=== PATIENT | male | born 1975 | race Caucasian/White ===

== ENCOUNTER → 2019-10-02 17:06 | Outpatient (CLI) | payer BC, SELFPAY ==
[2019-10-02 18:18] LABS: Free T4 (Free Thyroxine) 0.84 ng/dl (0.78-2.19)
== END ==
PROVIDERS: Visit Provider Family Medicine
DX: R79.89 Other specified abnormal findings of blood chemistry (principal)
CPT/HCPCS: 36415; 84439

== ENCOUNTER 2024-01-13 07:58 | Day surgery (SDC) | payer BC, SELFPAY ==
--- NOTE | 2024-01-10 10:11 | SUR.PREOP ---
attempted to call patient. no answer. left voicemail with call back number
[2024-01-10 11:32] VITALS: BMI 29.3
[2024-01-13 08:08] VITALS: BP 134/91; PULSE 58; RESP 18; TEMP 36.4; O2SAT 98
--- NOTE | 2024-01-13 08:22 | P.PNANES_ITS ---
[facility] Disclaimer: The information contained in this section may have been updated after the patient was seen, as this information can be updated by other users. Medical History Hyperthyroidism Hypertension Surgical History S/P foot surgery, left Family History Father Prostate cancer Mother Family history of myocardial infarction Family history of COPD (chronic obstructive pulmonary disease) Grandmother Family history of diabetes mellitus type II Social History Smoking Status: Former smoker alcohol intake: never substance use type: denies use current occupational status: employed Travel in the last 8 weeks: None caffeine: Yes [facility] Anesthesia Checklist Patient Identification Patient Identification: Arm Band and Verbal (Name & ) Structural Data Admitted From: Home Planned Operative Procedure/s: Colonoscopy Consent for Planned Operative Procedure(s) Verified: Yes Verified Documents: Surgical Consent and History and Physical NPO Status Verified Time NPO: 00:00 Additional verifications Anesthesia Reactions: No Airway Assessment Mallampati Score:: Class I C-Spine Mobility Assessed: Yes TMJ Mobility Assessed: Yes Dentition: Good Dentition Neurological Assessment Level of Consciousness: Awake Hx Seizures: No Numbness or tingling in extremities: No Anesthesia Plan Anesthesia Risk discussed: Yes Anesthesia Plan: Verified ASA Class: II Anesthesia Type: MAC
[2024-01-13] MEDS: LACTATED RINGERS 1000ML 1,000 ML 25 ML IV (08:28)
[2024-01-13 09:06] VITALS: O2SAT 100
--- NOTE | 2024-01-13 09:10 | P.HP_ITS ---
History of Present Illness *Admission Date: 01/13/24 *Reason for visit:: Screening *History of present illness: Mr. Loaiza is a 48-year-old gentleman who is here for screening colonoscopy/screening for colon cancer. The examination is deemed medically necessary for colonoscopy. The patient has been seen, interviewed and examined prior to the procedure by both myself and the anesthesia provider. [facility] Disclaimer: The information contained in this section may have been updated after the patient was seen, as this information can be updated by other users. Medical History Hyperthyroidism Hypertension Surgical History S/P foot surgery, left Family History Father Prostate cancer Mother Family history of myocardial infarction Family history of COPD (chronic obstructive pulmonary disease) Grandmother Family history of diabetes mellitus type II Social History (Updated 01/13/24 @ 08:27 by Alonso Glynn CRNA) Smoking Status: Former smoker alcohol intake: never substance use type: denies use current occupational status: employed Travel in the last 8 weeks: None caffeine: Yes Review of Systems Review of Systems Review of systems (narrative): Negative *Cardiovascular Comments: Negative *Gastrointestinal Comments: Negative *Genitourinary Comments: Negative *Musculoskeletal Comments: Negative *Neurologic Comments: Negative Meds Home Medications and Allergies Home Medications ?Medication ?Instructions ?Recorded ?Confirmed ?Type [id number] 140 gram-sod sulfate 9 See Rx Instructions PO .COMPLEX #3 01/06/24 Rx gram-NaCl 5.2gram-KCl-C oral pwdr ea packs (Plenvu) escitalopram oxalate 10 mg tablet 10 mg PO DAILY 01/13/24 01/13/24 History lisinopril 10 mg tablet 10 mg PO DAILY 01/13/24 01/13/24 History loratadine 10 mg tablet 10 mg PO DAILY 01/13/24 01/13/24 History New Prescriptions to Start Prescriptions: Allergies Allergy/AdvReac Type Severity Reaction Status Date / Time No Known Allergies Allergy Verified 01/13/24 08:08 Exam Data for Last 24 hours Vital signs and Labs for Last 24 Hours: Temp Pulse Resp BP Pulse Ox O2 Del Method O2 Flow Rate 97.6 F 58 L 18 134/91 H 98 Nasal Cannula 5 01/13/24 08:08 01/13/24 08:08 01/13/24 08:08 01/13/24 08:08 01/13/24 08:08 01/13/24 09:06 01/13/24 09:06 I & O for Last 24 hours: Intake & Output 01/10/24 01/11/24 01/12/24 01/13/24 23:59 23:59 23:59 23:59 Weight 182 lb *Routine HEENT Exam Head: Present normocephalic Eye: Present EOMI and PERRL ENT: Present mucous membranes moist *Routine Neck Exam Neck: Present supple *Routine Respiratory Exam Respiratory: Present CTA bilaterally *Routine Cardiovascular Exam Cardiovascular: Present RRR *Routine Abdominal Exam Abdominal: Present soft and normoactive bowel sounds; Absent tenderness *Routine Rectal Exam Rectal:: deferred *Routine Genitalia Exam Genitalia:: deferred *Routine Extremities Exam Extremities: Absent cyanosis, clubbing or edema *Routine Skin Exam Skin: Present warm; Absent rash *Routine Neurological Exam Neurological: Present alert and oriented X3 Assessment and Plan *Assessment and plan (1) Screening for colon cancer: Status: Acute Category: Medical Code(s): Z12.11 - Encounter for screening for malignant neoplasm of colon Plan A/P: 1. Screening for colon cancer is the preprocedural diagnosis. The patient will be anesthetized/sedated using MAC sedation. The patient has been seen and examined. Cardiac and lung assessment prior to the examination is stable. Proceed with planned colonoscopy
--- NOTE | 2024-01-13 09:11 | HMH.PROCNOTE ---
[facility] Procedure Note Date: 01/13/24 Time: 09:28 Procedure Note:: Colonoscopy Procedure Report: Colonoscopy with cold snare polypectomy Endoscopist: Arthur Simmons II, MD Referring physician: Jose Scott MD Date of Procedure: January 13, 2024 Equipment: Olympus 190 variable stiffness pediatric colonoscope Sedation: MAC sedation Indication: Mr. Loaiza is a 48-year-old gentleman who is here for initial screening colonoscopy. He reports no abdominal pain, weight loss, change in his bowel habits or rectal bleeding. He reports no family history of colon cancer. Procedure: Prior to the procedure, a history and physical exam was performed, and patient's medications and allergies were reviewed. The risks, benefits and alternatives of the sedation and procedure were discussed with the patient. All questions were answered and informed consent was obtained. The patient was brought to the procedure room. Patient identification and proposed procedure were verified by the physician and the nurse. The patient was placed in a left lateral decubitus position and the scope was passed under direct vision. Throughout the procedure, the patient's blood pressure, pulse, and oxygen saturations were monitored continuously. The colonoscopy was accomplished without difficulty. The patient tolerated the procedure well. Findings: On digital rectal examination there was normal rectal tone. There were no external hemorrhoids. The prostate was 2+, moderately firm and mildly asymmetric without nodules. The colonoscope was introduced through the anal canal to the rectum and advanced to the cecum. The ileocecal valve and appendiceal orifice were identified. The scope was advanced a short distance into the ileum which appeared grossly normal. The scope was then withdrawn into the colon. There was melanosis coli noted throughout the colon. The cecum, ascending, transverse and ascending colon were normal. There were 3 diminutive polyps (sigmoid x 1 (5 mm) and rectum x 2 (3 and 4 mm)). These were all removed via cold snare polypectomy. The remaining rectum was normal. Upon retroflexion within the rectum there were grade 1-2 internal hemorrhoids.The preparation was excellent throughout with [place] Preparation Score of 9. The cecal time was 11 minutes. Impression: 1. Diminutive colonic polyps x 3 2. Moderate melanosis coli 3. Grade 1-2 internal hemorrhoids Plan: I will follow-up the polyp histology and recommend repeat surveillance colonoscopy again in 7 to 10 years depending whether these are adenomatous or hyperplastic polyps. 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 Melanosis coli is a disorder of pigmentation of the wall of the colon. It is benign and has no correlation with disease. Melanosis coli is a misnomer since the brown pigmentation is actually caused by a substance call lipofuscin deposited in cells called macrophages. It is not a melanin deposit. It is most commonly caused by a group of laxatives commonly known to us as anthroquinolones such as senna and other plant/natural laxatives. No adverse effects or consequences of melanosis coli have ever been identified. I would encourage psyllium fiber rather than stimulant laxatives.
[2024-01-13 09:33] VITALS: BP 88/43; PULSE 68; RESP 16; TEMP 36.3; O2SAT 94
[2024-01-13 09:43] VITALS: BP 98/52; PULSE 67; RESP 16; O2SAT 96
[2024-01-13 09:53] VITALS: BP 101/54; PULSE 66; RESP 16; O2SAT 98
[2024-01-13 09:54] VITALS: BP 109/65; PULSE 59; RESP 16; O2SAT 98
== END 2024-01-13 10:15 | disposition home or self-care (01) ==
PROVIDERS: PCP Family Medicine; Visit Provider Internal Medicine Gastroenterology
PROC: (CPT 45385; principal; 2024-01-13 09:30)
DX: Z12.11 Encounter for screening for malignant neoplasm of colon (principal); K63.5 Polyp of colon; K63.89 Other specified diseases of intestine; K64.8 Other hemorrhoids
CPT/HCPCS: 45385; J7120

== ENCOUNTER 2024-01-16 11:00 | Outpatient (CLI) | payer BC, SELFPAY ==
[2024-01-16 17:40] LABS: Iron 82 ug/dL (49-181)
[2024-01-16 17:49] LABS: Total Iron Binding Capacity 280 ug/dL (261-462)
[2024-01-16 18:16] LABS: Ferritin 319 ng/ml (17.9-464)
[2024-01-16 19:16] LABS: HIV (1&2) Antibody Rapid NONREACTIVE (NONREACTIVE)
[2024-01-17 07:13] LABS: HCV Ab Non Reactive (Non Reactive)
== END 2024-01-16 23:59 | disposition home or self-care (01) ==
LOC: LAB.DROPOF 01-17 12:46
PROVIDERS: PCP Nurse Practitioner Family; Visit Provider Nurse Practitioner Family
DX: R53.83 Other fatigue (principal); Z11.4 Encounter for screening for human immunodeficiency virus [HIV]; Z11.59 Encounter for screening for other viral diseases
CPT/HCPCS: 82728; 83540; 83550; 86803; 87389

== ENCOUNTER 2024-02-07 13:59 | Outpatient (CLI) | payer BC, SELFPAY ==
--- NOTE | 2024-02-07 14:00 | CT_ITS ---
FINAL REPORT TECHNIQUE: Thin section axial images were obtained from the lung apices to the upper abdomen by computed tomography. Reformatted images were obtained and reviewed. This study was performed with techniques to keep radiation doses al low as reasonably achievable (ALARA). Individualized dose reduction techniques using automated exposure control or adjustment of mA and/or kV according to the patient's size were employed. CLINICAL HISTORY: former smoker, quit 8 years ago. total of 34 years. 1ppd COMPARISON: None FINDINGS: CHEST CT LOW DOSE 48-year-old male, former smoker who quit 8 years ago, 46-[id number]-rqiv history. CTDI vol (mGy): 2.9 DLP (mGy-cm): 100.03 There is no axillary adenopathy. There is no mediastinal or hilar mass or adenopathy. The heart is normal in size. Mild coronary artery calcifications are present. There is no pericardial or pleural effusion. Lung window images demonstrate no suspicious infiltrate or nodule. Limited images of the upper abdomen are unremarkable. IMPRESSION: Lung-RADS category 1. Recommend 12 month follow up low dose chest CT. Reviewed, Interpreted and Dictated by Roby Sanchez III, MD Transcribed by Yuli Stearns Authenticated and . [facility]
== END 2024-02-07 23:59 | disposition home or self-care (01) ==
LOC: RAD 14:00
PROVIDERS: PCP Nurse Practitioner Family; Visit Provider Nurse Practitioner Family
DX: Z87.891 Personal history of nicotine dependence (principal); Z12.2 Encounter for screening for malignant neoplasm of respiratory organs
CPT/HCPCS: 71271

== ENCOUNTER → 2024-03-05 07:41 | Outpatient (CLI) | payer BC, SELFPAY | LOC: SL 07:41 | PROVIDERS: PCP Nurse Practitioner Family; Visit Provider Nurse Practitioner Family | DX: R06.83 Snoring (principal); Z68.29 Body mass index [BMI] 29.0-29.9, adult | CPT/HCPCS: G0399 ==

== ENCOUNTER 2025-01-13 11:00 | Outpatient (CLI) | payer BC, SELFPAY ==
--- OUTSIDE RECORDS SUMMARY | 2023-10-28 05:15 | XMS_ITS ---
Author Organization [facility] Address [address] [facility] 36 [facility] [address] [place] [phone] Care Team Providers Care Card Checker Name Role Phone Renetta Scottian Primary Care Provider Allergies No Known Allergies Results Component Value Reference Range Notes P-Basic Metabolic Panel (BMP ) Reviewed date:10/30/2023 10:15:46 AM Interpretation:Normal Performing Lab: Notes/Report: Test performed by [email or web address] [facility] [employer] [place] , [address], [place] [address] Rolly Patel MD, Microstrategy Architect CLIA: [id number] Sodium 138 135-145 mmol/L Potassium 4.4 3.5-5.3 mmol/L Chloride 102 97-108 mmol/L CO2 30 22-32 mmol/L Glucose 89 65-99 mg/dL BUN 11 6-20 mg/dL Creatinine 0.94 0.70-1.30 mg/dL Calcium 10.2 8.6-10.4 mg/dL eGFR by Creatinine 98 >59 mL/min/1.73m2 P-Lipid Panel Reviewed date:10/30/2023 10:15:46 AM Interpretation:Normal Performing Lab: Notes/Report: [email or web address] [place] , [address], [place] [address] Rolly Patel MD, Microstrategy Architect CLIA: [id number] Cholesterol 156 <200 mg/dL Triglycerides 50 <150 [...] Interpretation:Normal Performing Lab: Notes/Report: Test performed by [email or web address] [address] [place] [address] Rolly Patel MD, Microstrategy Architect CLIA: [id number] PSA 0.43 <4.00 ng/mL Please note this is an ultrasensitive PSA assay with a lower limit of detection of 0.014 ng/mL. This test is performed by the Connor ECLIA methodology. Values obtained with different assay methods or kits cannot be directly compared. P-Microalbumin/Creatinine, R andom Urine Sample Reviewed date:10/30/2023 10:15:46 AM Interpretation:Normal Performing Lab: Notes/Report: Test performed by [email or web address] [address] [place] [address] Rolly Patel MD, Microstrategy Architect CLIA: [id number] Albumin/Creatinine Ratio, Urine See Comment 0-30 ug/mg Unable to calculate Urine Albumin/Creatinine Ratio when urine creatinine or urine albumin fall outside established reportable range. Microalbumin, Urine, Random <0.3 Creatinine, Urine 21.4 P-Uric Acid Reviewed date:10/30/2023 10:15:46 AM Interpretation:Normal Performing Lab: Notes/Report: Test performed by [email or web address] [address] [place] [address] , [address], [place] [address] Rolly Patel MD, Microstrategy Architect CLIA: [id number] Uric Acid 4.2 3.4-8.0 mg/dL REASON FOR [...] 10/28/2023 Encounters Encounter Location Date Provider Diagnosis [facility] [address] [facility] 36 [facility] [address] [place] [phone] 10/28/2023 Jose [place] Essential hypertensi on I10 ; Non-seasonal allergic [...] * Trev MCALLISTERDOB:1975 ( 49 yo M)Acc No.[id number]:10/28/2023 Progress Notes Patient: Trev BUTLER Provider: Tyrone Scott M.D. :1975 A ge:48 Y S ex:Male Date:10/28/2023 Address:[address] [place] [address] , [place], [id number] Subjective: * Chief Complaints: * 1 . [...] detector use: yes. Marital Status: Single. 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 Past smoking status: yes, PPD: 1.5 , [...] ?4.?Colon cancer screening?Imaging: colonoscopy* Dr. Simmons at [facility] 10/28/2023 10:00:34 AM > faxed order [...] * Images: Billing Information: * Visit Code: 72628 Office Visit, Est Pt., Level 4. * Procedure Codes: * Electronic signature of Rebecca Scott MD on 01/15/2025 at 09:02 AM EDT Sign off status: Pending * Provider: Tyrone Scott M.D. Date: 0 10/28/2023 Generated for Yelena pearson/Johnson/eTserge on: 1 09:02 AM EDT History and Physical Notes * HPI (History [...]
--- OUTSIDE RECORDS SUMMARY | 2024-01-01 10:15 | XMS_ITS ---
Author Organization [facility] Address [address] [facility] 36 [facility] [address] [place] [id number] Care Team Providers Care Icu Tech Name Role Phone Jose Scott Primary Care Provider Allergies No Known Allergies [...] 423 Performing Lab: Notes/Report: Test performed by [facility] [address] [place], [place] [address] [place] , [address], [place] [address] Rolly Patel MD, Process Planner CLIA: [id number] Vitamin B12 734 538-8588 pg/mL P-Arthritis Panel, [facility] Reviewed date:01/06/2024 11:48:31 AM Interpretation:Normal Performing Lab: Notes/Report: Test performed by [facility] [address] [place], [place] [address] [place] , [address], [place] [address] Rolly Patel MD, Process Planner CLIA: [id number] Erythrocyte Sedimentation Rate (ESR), Automated 5 <21 mm/hr Rheumatoid Factor <10 <14.1 IU/mL C-Reactive Protein (CRP) 0.16 <0.50 mg/dL Antinuclear Antibodies (SAMANTA) Screen, Reflex SAMANTA 9 Panel Negative Negative This test is perform ed by Multiplex Bead Immunoassay methodology. Antinuclear Antibodies (SAMANTA) Result Note SEE COMMENT For positive Autoantibodies, please refer to the interpretive chart here: [email or web address] CCP Antibodies <0.5 <0.5-3.0 U/mL P-Testosterone Total (Adult Male) Reviewed date:01/06/2024 11:48:31 AM Interpretation:Normal 319 Performing Lab: Notes/Report: Test performed by [facility] [address] [place], [place] [address] [facility] [place] , [facility] [address], [place] [address] Rolly Patel MD, Process Planner CLIA: [id number] Testosterone Total 319.00 264.00-916.00 ng/dL P-Hepatic Function Panel Reviewed date:01/06/2024 11:48:31 AM Interpretation:Normal Performing Lab: Notes/Report: Test performed by [facility] [address] [place] [address] , [address], [place] [address] Rolly Patel MD, Process Planner CLIA: [id number] Protein 7.1 6.0-8.3 g/dL Albumin 4.6 3.5-5.3 g/dL Alkaline Phosphatase 86 40-129 IU/L ALT (SGPT) 19 <5-55 IU/L AST (SGOT) 22 <5-46 IU/L Bilirubin, Total 1.1 <0.2-1.2 mg/dL Bilirubin, Direct 0.2 <0.2-0.3 mg/dL Bilirubin, Indirect 0.9 0.2-1.3 mg/dL P-Magnesium Reviewed date:01/06/2024 11:48:31 AM Interpretation:Normal Performing Lab: Notes/Report: Test performed by [facility] [address] [place], [place] [address] [facility] [place] , [address], [place] [address] Rolly Patel MD, Process Planner CLIA: [id number] Magnesium 2.2 1.6-2.4 mg/dL P-Phosphorus Reviewed date:01/06/2024 11:48:31 AM Interpretation:Normal Performing Lab: Notes/Report: Test performed by [facility] [address] [place] [address] , [place] [address] Rolly Patel MD, Process Planner CLIA: [id number] Phosphorus 3.0 2.5-4.5 mg/dL P-TSH reflex to FT4 Reviewed date:01/06/2024 11:48:31 AM Interpretation:Normal Performing Lab: Notes/Report: Test performed by [facility] [address] [place] [address] , [address], [place] [id number] Rolly Patel MD, Process Planner CLIA: [id number] TSH reflex to FT4 2.68 0.43-5.25 mU/L P-Vitamin A (Retinol), Serum Reviewed date:01/06/2024 11:48:31 AM Interpretation:Normal Performing Lab: Notes/Report: Vitamin A (Retinol) 0.57 0.30-1.20 mg/L Vitamin A (Retinyl Palmitate) 0.02 0.00-0.10 mg/L Vitamin A, Ser/Beth - Interpretation Normal This test was developed and its performance characteristics determined by [facility] [facility]. It has not been cleared or approved by the US Food and Drug Administration. This test was performed in a CLIA certified laboratory and is intended for clinical purposes. Performed By: [facility] [address] [place] [address] Process Planner: Cornelius Arechiga MD, PhD CLIA Number: [id number] P-Vitamin D 25-Hydroxy Reviewed date:01/06/2024 11:48:31 AM Interpretation:42.7 Performing Lab: Notes/Report: Test performed by [facility] [address] [place] [address] , [place] [address] Rolly Patel MD, Process Planner CLIA: [id number] Vitamin D 25-Hydroxy 42.7 30.0-100.0 ng/mL Interpretation [...] developed and its performance characteristics determined by [facility]. It has not been cleared or approved by the US Food and Drug Administration. This test was performed in a CLIA certified laboratory and is intended for clinical purposes. Performed By: [facility] [address] [place] [address] Process Planner: Cornelius Arechiga MD, PhD CLIA Number: [id number] REASON FOR VISIT FATIGUE Medications Medication SIG [...] 01/01/2024 Encounters Encounter Location Date Provider Diagnosis [facility] [address] [facility] [address] [place], [place] [id number] 01/01/2024 Jose Baker Fatigue, unspecified type R53.83 ; Primary insomnia [...] * Trev MCALLISTERDOB:1975 ( 49 yo M)Acc No.[id number]:01/01/2024 Progress Notes Patient: Trev BUTLER Provider: Tyrone Scott M.D. :1975 A ge:48 Y S ex:Male Date:01/01/2024 Address:[address] [place] [address] W , [place], [id number] Subjective: * Chief Complaints: * 1 . [...] use: yes. Marital Status: Single. 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 Past smoking status: yes, PPD: 1.5 , [...] Treatment: Value Reference Range V itamin B12 [phone] - pg/mL * Mee Gregorio 01/06/2024 11:4 [...] * Images: Billing Information: * Visit Code: 27918 Office Visit, Est Pt., Level 4. * Procedure Codes: 18167 CBC WITH AUTO DIFF. * Electronic signature of Rebecca Scott MD on 01/15/2025 at 09:03 AM EDT Sign off status: Pending * Provider: Tyrone Scott M.D. Date: Generated for Yelena pearson/Johnson/eTransmitting on: 09:03 AM EDT History and Physical Notes * [...] no erythema Peripheral pulses: normal (2+) bilatera lly"
--- OUTSIDE RECORDS SUMMARY | 2024-04-28 05:00 | XMS_ITS ---
Author Organization [facility] Address 1210 [facility] [address] [place] [phone] Care Team Providers Care Box Strapper Name Role Phone Jose Scott Primary Care Provider REASON FOR VISIT 6 months Encounters Encounter Location Date Provider Diagnosis [facility] [address] [place] [phone] 04/28/2024 Jose Scott Plan Of Treatment No Information Progress Notes * Trev MCALLISTERDOB:1975 ( 49 yo M)Acc No.[id number]:04/28/2024 Progress Notes Patient: Trev BUTLER Provider: Tyrone Scott M.D. :1975 A ge:48 Y S ex:Male Date:04/28/2024 Address:[address] [place] [address] [id number] Subjective: * Chief Complaints: * 1 . 6 months. * Medical History: Objective: * Vitals: Assessment: Plan: * Treatment: * Images: Billing Information: * Visit Code: * Procedure Codes: * Electronic signature of Rebecca Scott MD on 01/15/2025 at 09:02 AM EDT Sign off status: Pending * Provider: Tyrone Scott M.D. Date: 04/28/2024 Generated for Yelena pearson/Johnson/eTransmitting on: 1 09:02 AM EDT
[2025-01-13 13:04] LABS: Microscopic, Urine URINE MICROSCOPIC (MICROSCOPIC)
[2025-01-13 13:21] LABS: Hematocrit 47.6 % (42.0-52.0); Hemoglobin 16.1 g/dL (14.1-18.0); Immature Granulocytes % 0.1 %; Mean Corpuscular HGB Conc 33.8 g/dL (31.8-35.4); Mean Corpuscular Hemoglobin 30.3 pg (27.0-31.2); Mean Corpuscular Volume 89.5 fl (80-94); Nucleated Red Blood Cells % 0 %; Platelet Count 225 K/mm3 (142-424); Red Blood Count 5.32 M/mm3 (4.60-6.20); Red Cell Distribution Width-SD 42.2 fL; White Blood Count 7.4 K/mm3 (4.8-10.8)
[2025-01-13 14:16] LABS: Bilirubin,Urine Negative (Negative); Color,Urine YELLOW (Yellow); Glucose,Urine (UA) Negative (Negative); Ketones,Urine Negative (Negative); Leukocyte Esterase,Urine Negative (Negative); PH,Urine 6.5 (5.0-8.5); Protein,Urine Negative (Negative); Specific Gravity, Urine 1.015 (1.005-1.030); Urobilinogen,Urine 0.2 EU/dl (0.2)
[2025-01-13 14:23] LABS: Hemoglobin A1C 4.9 % (4.0-6.0)
[2025-01-13 14:46] LABS: Alanine Aminotransferase 33 U/L (12-78); Albumin Level 4.3 g/dl (3.5-5.0); Albumin/Globulin Ratio 1.6 (1.1-1.8); Alkaline Phosphatase 85 U/L (38-126); Anion Gap 15.3 mEq/L (5-15); Aspartate Amino Transferase 34 U/L (17-59); Bilirubin,Total 1.8 mg/dl (0.2-1.3); Blood Urea Nitrogen 19 mg/dl (9-20); Calcium 9.8 mg/dl (8.4-10.2); Carbon Dioxide 27 mmol/L (22.0-30.0); Chloride 103 mmol/L (98-107); Cholesterol 159 mg/dl (140-200); Globulin 2.7 g/dL (1.3-3.2); Glucose 88 mg/dl (74-100); HDL Cholesterol 49 mg/dl (40-60); Potassium 4.3 mmoL/L (3.5-5.1); Sodium 141 mmol/L (136-145); Total Protein,Serum 7.0 g/dl (6.3-8.2); Triglycerides 47 mg/dl (30-150)
[2025-01-13 15:03] LABS: Free T4 (Free Thyroxine) 1.13 ng/dl (0.78-2.19)
[2025-01-13 15:04] LABS: 25-OH Vitamin D, Total 63.4 ng/mL (30-100)
[2025-01-13 15:16] LABS: Thyroid Stimulating Hormone 2.21 uIU/mL (0.465-4.68)
[2025-01-13 15:26] LABS: Amorphous Sediment,Urine 2+ /lpf; Bacteria,Urine Trace /lpf; Squamous Epithelial Cell,Urine Occasional #/hpf (0-5); WBC,Urine Occasional #/hpf (0-3)
[2025-01-13 15:35] LABS: Vitamin B12 316 pg/mL (239-931)
[2025-01-13 16:10] LABS: Creatinine,Serum 2.70 mg/dl (0.66-1.25); Estimated Glomerular Filt Rate 25 ml/min (>60); GFR (African American) 30 ML/MIN (>60)
--- OUTSIDE RECORDS SUMMARY | 2025-01-15 09:02 | XMS_ITS | Patient Health Record ---
Author Organization [facility] Address [address] [facility] 36 [facility] [address] [place] [phone] Care Team Providers Care Embroidery Assistant Name Role Phone Jose Scott Primary Care Provider [phone] Allergies No Known Allergies Reason For Referral No Information Medications Medication SIG (Take, Route, Frequency, Duration) [...] Once a day; Duration: 90 days Active Immunizations Vaccine Route Administration Date Status Comme nts Fluzone PF Quad (6-35 months) Unknown 12/31/2019 Admini stered Hepatitis B (20 and more) Unknown 04/26/1999 Administer ed Hepatitis B (20 and more) Unknown 05/31/1999 Administer ed Hepatitis B (20 and more) Unknown 01/03/2000 Administer ed Problems Problem Type SNOMED Code ICD Code Onset Dates Problem Status W/U Status Risk Notes Problem Information temporarily unavailable HTN [Hypertension] (401.9) Active confirmed Problem Information temporarily unavailable Anxiety disorder (300.00) Active confirmed Problem Information temporarily unavailable Essential hypertension (I10) Active confirmed Problem Information temporarily unavailable Hypertriglyceridemia (E78.1) Active confirmed Problem Information temporarily unavailable Hyperbilirubinemia (E80.6) Active confirmed Problem Information temporarily unavailable Primary insomnia (F51.01) Active confirmed Problem Information temporarily unavailable NERIS (generalized anxiety disorder) (F41.1) Active confirmed Problem Information temporarily unavailable Non-seasonal allergic rhinitis, unspecified chronicity, unspecified trigger (J30.89) Active confirmed Plan Of Treatment Pending Test Test Name Order Date colonoscopy 10/28/2023 Insurance Providers Payer Name Payer Address Payer Phone Subscriber Number Group Number Insured Name Patient Relationship to Insured Coverage Start Date Coverage End Date AMAURI [employer] [address] [place] [address] [id number] Trev Loaiza Self - patient is the insured Medical (General) History Medical History History ICD Code Anxiety Hypertension Allergic Rhinitis 25 pack year smoking history, quit in 20 16 Surgical History Surgery Date(Month/Year) LT Foot 2009 Vasectomy 2009
== END 2025-01-13 23:59 ==
LOC: LAB.DROPOF 01-15 08:57
PROVIDERS: PCP Nurse Practitioner Family; Visit Provider Nurse Practitioner Family
DX: G47.33 Obstructive sleep apnea (adult) (pediatric) (principal); I10 Essential (primary) hypertension; F41.9 Anxiety disorder, unspecified; F32.A Depression, unspecified; Z12.2 Encounter for screening for malignant neoplasm of respiratory organs; F17.200 Nicotine dependence, unspecified, uncomplicated; Z12.5 Encounter for screening for malignant neoplasm of prostate; R41.3 Other amnesia; E11.9 Type 2 diabetes mellitus without complications
CPT/HCPCS: 80053; 80061; 81001; 82306; 82607; 83036; 84156; 84439; 84443; 85025; 87086; G0103

== ENCOUNTER 2025-01-20 15:54 | Outpatient (CLI) | payer BC, SELFPAY ==
--- OUTSIDE RECORDS SUMMARY | 2023-10-28 05:15 | XMS_ITS ---
Author Organization [facility] Address [address] [facility] 36 [facility] [address] [place] [phone] Care Team Providers Care Musculoskeletal Physiotherapist Name Role Phone Renetta Scottian Primary Care Provider Allergies No Known Allergies Results Component Value Reference Range Notes P-Basic Metabolic Panel (BMP ) Reviewed date:10/30/2023 10:15:46 AM Interpretation:Normal Performing Lab: Notes/Report: Test performed by [employer] [facility] [employer] [place] , [address], [place] [address] Rolly Patel MD, Doors Prefitter CLIA: [id number] Sodium 138 135-145 mmol/L Potassium 4.4 3.5-5.3 mmol/L Chloride 102 97-108 mmol/L CO2 30 22-32 mmol/L Glucose 89 65-99 mg/dL BUN 11 6-20 mg/dL Creatinine 0.94 0.70-1.30 mg/dL Calcium 10.2 8.6-10.4 mg/dL eGFR by Creatinine 98 >59 mL/min/1.73m2 P-Lipid Panel Reviewed date:10/30/2023 10:15:46 AM Interpretation:Normal Performing Lab: Notes/Report: Test performed by [facility] [place] , [address], [place] [address] Rolly Patel MD, Doors Prefitter CLIA: [id number] Cholesterol 156 <200 mg/dL Triglycerides 50 <150 [...] Interpretation:Normal Performing Lab: Notes/Report: Test performed by [employer] [address] [place] [address] Rolly Patel MD, Doors Prefitter CLIA: [id number] PSA 0.43 <4.00 ng/mL Please note this is an ultrasensitive PSA assay with a lower limit of detection of 0.014 ng/mL. This test is performed by the Connor ECLIA methodology. Values obtained with different assay methods or kits cannot be directly compared. P-Microalbumin/Creatinine, R andom Urine Sample Reviewed date:10/30/2023 10:15:46 AM Interpretation:Normal Performing Lab: Notes/Report: Test performed by [facility] [address] [place] [address] Rolly Patel MD, Doors Prefitter CLIA: [id number] Albumin/Creatinine Ratio, Urine See Comment 0-30 ug/mg Unable to calculate Urine Albumin/Creatinine Ratio when urine creatinine or urine albumin fall outside established reportable range. Microalbumin, Urine, Random <0.3 Creatinine, Urine 21.4 P-Uric Acid Reviewed date:10/30/2023 10:15:46 AM Interpretation:Normal Performing Lab: Notes/Report: Test performed by [facility] [address] [place] [address] , [address], [place] [address] Rolly Patel MD, Doors Prefitter CLIA: [id number] Uric Acid 4.2 3.4-8.0 mg/dL REASON FOR [...] 10/28/2023 Encounters Encounter Location Date Provider Diagnosis [facility] [address] [facility] 36 [facility] [address] [place] [phone] 10/28/2023 Jose [place] Essential hypertensi on I10 ; Non-seasonal allergic [...] * Trev MCALLISTERDOB:1975 ( 49 yo M)Acc No.[id number]:10/28/2023 Progress Notes Patient: Trev BUTLER Provider: Tyrone Scott M.D. :1975 A ge:48 Y S ex:Male Date:10/28/2023 Address:[address] [place] [address] , [place], [id number] Subjective: * Chief Complaints: * 1 . [...] detector use: yes. Marital Status: Single. 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 Past smoking status: yes, PPD: 1.5 , [...] ?4.?Colon cancer screening?Imaging: colonoscopy* Dr. Simmons at [facility] 10/28/2023 10:00:34 AM > faxed order to [...] * Images: Billing Information: * Visit Code: 82092 Office Visit, Est Pt., Level 4. * Procedure Codes: * Electronic signature of Rebecca Scott MD on 01/21/2025 at 02:07 PM EDT Sign off status: Pending * Provider: Tyrone Scott M.D. Date: 0 10/28/2023 Generated for Yelena pearson/Johnson/Dewayne on: 02:07 PM EDT History and Physical Notes * HPI [...]
--- OUTSIDE RECORDS SUMMARY | 2024-01-01 10:15 | XMS_ITS ---
Author Organization [facility] Address 1210 [facility] 36 [facility] [address] [place] [phone] Care Team Providers Care Vocational Case Manager Name Role Phone Jose Scott Primary Care [...] [phone] Performing Lab: Notes/Report: Test performed by [facility] [address] [place], [place] [address]MENABANQER Winston , [address], [place] [address] Rolly Patel MD, Supervisor Quality Control CLIA: [id number] Vitamin B12 227 856-5770 pg/mL P-Arthritis Panel, All-Scrap Reviewed date:01/06/2024 11:48:31 AM Interpretation:Normal Performing Lab: Notes/Report: Test performed by [facility] [address] [place], [place] [address]MENABANQER [address] , [address], [place] [address] Rolly Patel MD, Supervisor Quality Control CLIA: [id number] Erythrocyte Sedimentation Rate (ESR), Automated 5 <21 mm/hr Rheumatoid Factor <10 <14.1 IU/mL C-Reactive Protein (CRP) 0.16 <0.50 mg/dL Antinuclear Antibodies (SAMANTA) Screen, Reflex SAMANTA 9 Panel Negative Negative This test is perform ed by Multiplex Bead Immunoassay methodology. Antinuclear Antibodies (SAMANTA) Result Note SEE COMMENT For positive Autoantibodies, please refer to the interpretive chart here: [email or web address] CCP Antibodies <0.5 <0.5-3.0 U/mL P-Testosterone Total (Adult Male) Reviewed date:01/06/2024 11:48:31 AM Interpretation:Normal 319 Performing Lab: Notes/Report: Test performed by [facility] [address] [place], [place] [address]MENABANQER Winston , [facility] [address], [place] [address] Rolly Patel MD, Supervisor Quality Control CLIA: [id number] Testosterone Total 319.00 264.00-916.00 ng/dL P-Hepatic Function Panel Reviewed date:01/06/2024 11:48:31 AM Interpretation:Normal Performing Lab: Notes/Report: Test performed by [facility] [address] [place] [address] , [address], [place] [address] Rolly Patel MD, Supervisor Quality Control CLIA: [id number] Protein 7.1 6.0-8.3 g/dL Albumin 4.6 3.5-5.3 g/dL Alkaline Phosphatase 86 40-129 IU/L ALT (SGPT) 19 <5-55 IU/L AST (SGOT) 22 <5-46 IU/L Bilirubin, Total 1.1 <0.2-1.2 mg/dL Bilirubin, Direct 0.2 <0.2-0.3 mg/dL Bilirubin, Indirect 0.9 0.2-1.3 mg/dL P-Magnesium Reviewed date:01/06/2024 11:48:31 AM Interpretation:Normal Performing Lab: Notes/Report: Test performed by [facility] [address] [place], [place] [address]MENABANQER Winston , [address], [place] [address] Rolly Patel MD, Supervisor Quality Control CLIA: [id number] Magnesium 2.2 1.6-2.4 mg/dL P-Phosphorus Reviewed date:01/06/2024 11:48:31 AM Interpretation:Normal Performing Lab: Notes/Report: Test performed by [facility] [address] [place] [address] , [place] [address] Rolly Patel MD, Supervisor Quality Control CLIA: [id number] Phosphorus 3.0 2.5-4.5 mg/dL P-TSH reflex to FT4 Reviewed date:01/06/2024 11:48:31 AM Interpretation:Normal Performing Lab: Notes/Report: Test performed by [facility] [address] [place] [address] , [address], [place] [id number] Rolly Patel MD, Supervisor Quality Control CLIA: [id number] TSH reflex to FT4 2.68 0.43-5.25 mU/L P-Vitamin A (Retinol), Serum Reviewed date:01/06/2024 11:48:31 AM Interpretation:Normal Performing Lab: Notes/Report: Vitamin A (Retinol) 0.57 0.30-1.20 mg/L Vitamin A (Retinyl Palmitate) 0.02 0.00-0.10 mg/L Vitamin A, Ser/Beth - Interpretation Normal This test was developed and its performance characteristics determined by [facility]. It has not been cleared or approved by the [place] Food and Drug Administration. This test was performed in a CLIA certified laboratory and is intended for clinical purposes. Performed By: [facility] [address] [place] [address] Supervisor Quality Control: Cornelius Arechiga MD, PhD CLIA Number: [id number] P-Vitamin D 25-Hydroxy Reviewed date:01/06/2024 11:48:31 AM Interpretation:42.7 Performing Lab: Notes/Report: Test performed by [facility] [address] [place] [address] , [place] [address] Rolly Patel MD, Supervisor Quality Control CLIA: [id number] Vitamin D 25-Hydroxy 42.7 30.0-100.0 ng/mL Interpretation [...] developed and its performance characteristics determined by [facility]. It has not been cleared or approved by the US Food and Drug Administration. This test was performed in a CLIA certified laboratory and is intended for clinical purposes. Performed By: [facility] [address] [place] [address] Supervisor Quality Control: Cornelius Arechiga MD, PhD CLIA Number: [id number] REASON FOR VISIT FATIGUE Medications Medication SIG [...] 01/01/2024 Encounters Encounter Location Date Provider Diagnosis [facility] [address] [facility] [address] [place], [place] [id number] 01/01/2024 Jose Fullerton Fatigue, unspecified type R53.83 ; Primary insomnia [...] * Trev MCALLISTERDOB:1975 ( 49 yo M)Acc No.[id number]:01/01/2024 Progress Notes Patient: Trev BUTLER Provider: Tyrone Scott M.D. :1975 A ge:48 Y S ex:Male Date:01/01/2024 Address:[address] [place] [address] W , [id number] Subjective: * Chief Complaints: * 1 . [...] yes. Marital Status: Single. 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 Past smoking status: yes, PPD: 1.5 , [...] Treatment: Value Reference Range V itamin B12 [phone] - pg/mL * Mee Gregorio 01/06/2024 11:4 [...] * Images: Billing Information: * Visit Code: 42435 Office Visit, Est Pt., Level 4. * Procedure Codes: 75571 CBC WITH AUTO DIFF. * Electronic signature of Rebecca Scott MD on 01/21/2025 at 02:08 PM EDT Sign off status: Pending * Provider: Tyrone Scott M.D. Date: Generated for Yelena pearson/Johnson/eTransmitting on: 02:08 PM EDT History and Physical Notes * [...]
--- OUTSIDE RECORDS SUMMARY | 2024-04-28 05:00 | XMS_ITS ---
Author Organization [facility] Address 1210 [facility] [address] [place] [phone] Care Team Providers Care Museum Archivist Name Role Phone Jose Scott Primary Care Provider REASON FOR VISIT 6 months Encounters Encounter Location Date Provider Diagnosis [facility] 12[facility] [address] [place] [phone] 04/28/2024 Jose Scott Plan Of Treatment No Information Progress Notes * Trev MCALLISTERDOB:1975 ( 49 yo M)Acc No.[id number]:04/28/2024 Progress Notes Patient: Trev BUTLER Provider: Tyrone Scott M.D. :1975 A ge:48 Y S ex:Male Date:04/28/2024 Address:[address] [place] [address] [id number] Subjective: * Chief Complaints: * 1 . 6 months. * Medical History: Objective: * Vitals: Assessment: Plan: * Treatment: * Images: Billing Information: * Visit Code: * Procedure Codes: * Electronic signature of Rebecca Scott MD on 01/21/2025 at 02:08 PM EDT Sign off status: Pending * Provider: Tyrone Scott M.D. Date: 04/28/2024 Generated for Yelena ng/Johnson/eTransmitting on: 1 02:08 PM EDT
[2025-01-20 18:31] LABS: Microscopic, Urine URINE MICROSCOPIC (MICROSCOPIC)
[2025-01-20 18:44] LABS: Bilirubin,Urine Negative (Negative); Color,Urine YELLOW (Yellow); Glucose,Urine (UA) Negative (Negative); Ketones,Urine Negative (Negative); Leukocyte Esterase,Urine Negative (Negative); PH,Urine 7.0 (5.0-8.5); Protein,Urine Negative (Negative); Specific Gravity, Urine 1.015 (1.005-1.030); Urobilinogen,Urine 0.2 EU/dl (0.2)
[2025-01-20 19:33] LABS: Albumin Level 3.7 g/dl (3.5-5.0); Albumin/Globulin Ratio 1.0 (1.1-1.8); Chloride 98 mmol/L (98-107); Globulin 3.8 g/dL (1.3-3.2); Glucose 73 mg/dl (74-100); Potassium 4.2 mmoL/L (3.5-5.1); Sodium 133 mmol/L (136-145); Total Protein,Serum 7.5 g/dl (6.3-8.2)
[2025-01-20 19:34] LABS: Alanine Aminotransferase 48 U/L (12-78); Alkaline Phosphatase 89 U/L (38-126); Anion Gap 11.2 mEq/L (5-15); Aspartate Amino Transferase 46 U/L (17-59); Bilirubin,Total 1.7 mg/dl (0.2-1.3); Blood Urea Nitrogen 23 mg/dl (9-20); Calcium 9.4 mg/dl (8.4-10.2); Carbon Dioxide 28 mmol/L (22.0-30.0); Creatine Kinase 138 U/L (55-170); Creatinine,Serum 1.10 mg/dl (0.66-1.25); Estimated Glomerular Filt Rate 71 ml/min (>60); GFR (African American) 85 ML/MIN (>60)
[2025-01-20 19:38] LABS: Amorphous Sediment,Urine 4+ /lpf; Bacteria,Urine 1+ /lpf; RBC,Urine Occasional #/hpf (0-3); WBC,Urine Occasional #/hpf (0-3)
--- OUTSIDE RECORDS SUMMARY | 2025-01-21 14:08 | XMS_ITS | Patient Health Record ---
Author Organization [facility] Address 1210 [facility] 36 [facility] [address] [place] [phone] Care Team Providers Care Paper Making Machine Operator Name Role Phone Jose Scott Primary Care Provider [phone] Allergies No Known Allergies Reason For Referral [...] Problem Status W/U Status Risk Notes Problem Essential hypertension (38682166) HTN [Hypertension] (401.9) Active confirmed Problem Anxiety disorder (146936762) Anxiety disorder (300.00) Active confirmed Problem Essential hypertension (26203810) Essential hypertension (I10) Active confirmed Problem Hypertriglyceridemia (713864002) Hypertriglyceridemia (E78.1) Active confirmed Problem Hyperbilirubinemia (24295075) Hyperbilirubinemia (E80.6) Active confirmed Problem Primary insomnia (0839126) Primary insomnia (F51.01) Active confirmed Problem Generalized anxiety disorder (82802536) NERIS (generalized anxiety disorder) (F41.1) Active confirmed Problem Allergic rhinitis (13652225) Non-seasonal allergic rhinitis, unspecified chronicity, unspecified trigger (J30.89) Active confirmed Plan Of Treatment Pending Test Test Name Order Date colonoscopy 10/28/2023 Insurance Providers Payer Name Payer Address Payer Phone Subscriber Number Group Number Insured Name Patient Relationship to Insured Coverage Start Date Coverage End Date AMAURI [facility] [address] [place] [address] [id number] Trev Loaiza Self - patient is the insured Medical (General) History Medical History History ICD Code Anxiety Hypertension Allergic Rhinitis 25 pack year smoking history, quit in 20 16 Surgical History Surgery Date(Month/Year) LT Foot 2009 Vasectomy 2009
[2025-01-22 12:12] LABS: Albumin, U <3.0 ug/mL (Not Estab.)
== END 2025-01-20 23:59 | disposition home or self-care (01) ==
LOC: LAB.DROPOF 01-21 13:52
PROVIDERS: PCP Nurse Practitioner Family; Visit Provider Nurse Practitioner Family
DX: N17.9 Acute kidney failure, unspecified (principal); R41.3 Other amnesia
CPT/HCPCS: 80053; 81001; 82043; 82550; 82570

== ENCOUNTER 2025-02-08 07:01 | Outpatient (CLI) | payer BC, SELFPAY ==
--- OUTSIDE RECORDS SUMMARY | 2023-10-28 04:15 | XMS_ITS ---
Author Organization [facility] Address [address] [facility] [address] [place] [phone] Care Team Providers Care Home Security Alarm Installer Name Role Phone Renetta Scottian Primary Care Provider [phone] Allergies No Known Allergies Results Component Value Reference Range Notes P-Basic Metabolic Panel (BMP ) Reviewed date:10/30/2023 10:15:46 AM Interpretation:Normal Performing Lab: Notes/Report: CLIA: [id number] Rolly Patel MD, Ferry Engineer [address] [place] [address] , [address], [place] [address] Test performed by [facility] Sodium 138 135-145 mmol/L Potassium 4.4 3.5-5.3 mmol/L Chloride 102 97-108 mmol/L CO2 30 22-32 mmol/L Glucose 89 65-99 mg/dL BUN 11 6-20 mg/dL Creatinine 0.94 0.70-1.30 mg/dL Calcium 10.2 8.6-10.4 mg/dL eGFR by Creatinine 98 >59 mL/min/1.73m2 P-Lipid Panel Reviewed date:10/30/2023 10:15:46 AM Interpretation:Normal Performing Lab: Notes/Report: CLIA: [id number] Rolly Patel MD, Ferry Engineer [address] [place] [address] [address], [place] [address] Test performed by [facility] Cholesterol 156 <200 mg/dL Triglycerides 50 <150 mg/dL HDL Cholesterol 46 >39 mg/dL Cholesterol / HDL Ratio 3.39 0.00-4.99 Ratio Non-HDL Cholesterol 110 <130 mg/dL LDL Cholesterol (Calculation) 100 <130 mg/dL LDL Cholesterol Levels* Less than 100 mg/dL Optimal 100 to 129 mg/dL Near Optimal/ Above Optimal 130 to 159 mg/dL Borderline High 160 to 189 mg/dL High 190 mg/dL and above Very High * Categories as recommended by the 2004 ATPIII guidelines LDL/HDL Ratio 2.2 <3.3 Ratio LDL Cholesterol Patient History Test Date: 10/28/2023 LDL Results: 100 Units: mg/dL % Change: - P-PSA Reviewed date:10/30/2023 10:15:46 AM Interpretation:Normal Performing Lab: Notes/Report: Test performed by [employer] [address] [place] [address] Rolly Patel MD, Ferry Engineer CLIA: [id number] PSA 0.43 <4.00 ng/mL Please note this is an ultrasensitive PSA assay with a lower limit of detection of 0.014 ng/mL. This test is performed by the Connor ECLIA methodology. Values obtained with different assay methods or kits cannot be directly compared. P-Microalbumin/Creatinine, R andom Urine Sample Reviewed date:10/30/2023 10:15:46 AM Interpretation:Normal Performing Lab: Notes/Report: Test performed by [employer] [address] [place] [address] Rolly Patel MD, Ferry Engineer CLIA: [id number] Albumin/Creatinine Ratio, Urine See Comment 0-30 ug/mg Unable to calculate Urine Albumin/Creatinine Ratio when urine creatinine or urine albumin fall outside established reportable range. Microalbumin, Urine, Random <0.3 Creatinine, Urine 21.4 P-Uric Acid Reviewed date:10/30/2023 10:15:46 AM Interpretation:Normal Performing Lab: Notes/Report: Test performed by [facility] [address] [place] [address] , [address], [place] [address] Rolly Patel MD, Ferry Engineer CLIA: [id number] Uric Acid 4.2 3.4-8.0 mg/dL REASON FOR VISIT 6 Month Check Up Medications Medication SIG (Take, Route, Frequency, Duration) Notes Start Date End Date Status Escitalopram Oxalate 10 MG 1 tab(s) oral ly once a day; Duration: 90 days Active EQ All Day Allergy Relief 10 MG 1 tablet Orally Once a day; Duration: 90 days Active Lisinopril 10 MG 1 tab(s) orally once a day; Duration: 90 days Active Fluticasone Propionate 50 MCG/ACT 1 spray(s) intranasally once a day Active Vital Signs Blood pressure systolic 114 mm Hg 10/28/19 24 Blood pressure diastolic 70 mm Hg 024 Heart Rate 62 /min 10/28/2023 Height 67 in 10/28/2023 Weight 179 lbs 10/28/2023 BMI 28.03 kg/m2 10/28/2023 Encounters Encounter Location Date Provider Diagnosis [facility] [address] [facility] [address] [place] [phone] 10/28/2023 Jose [place] Essential hypertensi on I10 ; Non-seasonal allergic rhinitis, unspecified chronicity, unspecified trigger J30.89 ; NERIS (generalized anxiety disorder) F41.1 ; Colon cancer screening Z12.11 and Prostate cancer screening Z12.5 Assessments Encounter Date Diagnosis (ICD Code) Assessment Notes Treatment Notes Treatment Clinical Notes Section Notes 10/28/2023 Essential hypertension (ICD-10 - I10) 10/28/2023 Non-seasonal allergic rhinitis, unspecified chronicity, unspecified trigger (ICD-10 - J30.89) 10/28/2023 NERIS (generalized anxiety disorder) (ICD-10 - F41.1) 10/28/2023 Colon cancer screening (ICD-10 - Z12.11) 10/28/2023 Prostate cancer screening (ICD-10 - Z12.5) Plan Of Treatment Medication Medication Name Sig Start Date Stop Date Notes Escitalopram Oxalate 10 MG 1 tab(s) oral ly once a day; Duration: 90 days EQ All Day Allergy Relief 10 MG 1 tablet Orally Once a day; Duration: 90 days Lisinopril 10 MG 1 tab(s) orally once a day; Duration: 90 days Pending Test Test Name Order Date colonoscopy 10/28/2023 Next Appt Details Follow Up: 6 Months, Reason: Progress Notes * Trev MCALLISTERDOB:1975 ( 49 yo M)Acc No.[id number]:10/28/2023 Progress Notes Patient: Trev BUTLER Provider: Tyrone Scott M.D. :1975 A ge:48 Y S ex:Male Date:10/28/2023 Address:[address] [place] [address] , [place], [id number] Subjective: * Chief Complaints: * 1 . 6 Month Check Up. * HPI: C ardiology: 48 year old male presents with c/o Blood Pressure Elevated P t here for 6 mo f/u on hypertension, states he is doing well and does not have any concerns. c/o Hyperlipidemia P t is fasting today. * ROS: D ERMATOLOGY: no R leonie. n o H rosina. G ASTROENTEROLOGY: no N ausea. n o V omiting. U ROLOGY: no D ifficulty urinating. n o B lood in urine. * Medical History: A nxiety, Hypertension, Allergic Rhinitis, 25 pack year smoking history, quit in 2016. * Surgical History: L T Foot 2008, Vasectomy 2009. * Hospitalization/Major Diagno stic Procedure: D enies Past Hospitalization. * Family History: F ather: alive, stroke, prostate cancer, diagnosed with Cancer. M other: alive. 1 brother(s) , 2 sister(s) - healthy. . * Social History: C URRENT TOBACCO USE S moking Status: Patient does smoke, packs per day: 1.5. C affeine: yes, frequency:. Exercise: no. Home smoke detector use: yes. Marital Status: Single. 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 Past smoking status: yes, PPD: 1.5 , years: since age of 13 yrs ,determination:. Recreational drug use: no. Alcohol: Type: , Frequency: too often ,Years: , Determination:pt mother states has a problem with it. * Medications: T aking Fluticasone Propionate 50 MCG/ACT Suspension 1 spray(s) intranasally once a day , Taking Escitalopram Oxalate 10 MG Tablet 1 tab(s) orally once a day , Taking Lisinopril 10 MG Tablet 1 tab(s) orally once a day , Taking EQ All Day Allergy Relief 10 MG Tablet Take 1 tablet by mouth once daily , Medication List reviewed and reconciled with the patient * Allergies: N .K.D.A. Objective: * Vitals: W t:179, Temp:97.8, BP:114/70, HR:62, Nurse:melany, Ht: 67, BMI:28.03. * Examination: C ardiology: General Appearance: p leasant, NAD. H eart sounds: R RR, normal S1, S2. L ungs: c lear, no rales or wheezes. E xtremities: n o leg edema. P eripheral pulses: 2 plus bilateral. Assessment: * Assessment: 1. E ssential hypertension - I10 (Primary) 2 . N on-seasonal allergic rhinitis, unspecified chronicity, unspecified trigger - J30.89 3 . G AD (generalized anxiety disorder) - F41.1 4 . C olon cancer screening - Z12.11 5 . P rostate cancer screening - Z12.5 Plan: * Treatment: Value Reference Range B UN 11 6-20 - mg/dL * C alcium 10.2 8.6-10.4 - mg/dL * C hloride 102 97-108 - mmol/L * C O2 30 22-32 - mmol/L * C reatinine 0.94 0.70-1.30 - mg/dL * G lucose 89 65-99 - mg/dL * P otassium 4.4 3.5-5.3 - mmol/L * S odium 138 135-145 - mmol/L * e GFR by Creatinine 98 >59 - mL/min/1.73m2 * Jose Scott 10/29/2023 12 :51:13 PM > Lab results are normal, sent to to inform. Nelly Marie 10/30/2023 10:15:34 AM >Call normal results to patient ?LAB: P-Lipid Panel (Collection Date & Time - 10/28/2023 09:00 AM)?Normal* Value Reference Range C holesterol / HDL Ratio 3.39 0.00-4.99 - Ratio * C holesterol 156 <200 - mg/dL * H DL Cholesterol 46 >39 - mg/dL * L DL Cholesterol (Calculation) 100 <130 - mg/d L * L DL/HDL Ratio 2.2 <3.3 - Ratio * N on-HDL Cholesterol 110 <130 - mg/dL * T riglycerides 50 <150 - mg/dL * Jose Scott 10/29/2023 12 :51:13 PM > Lab results are normal, sent to to inform. Nelly Marie 10/30/2023 10:15:34 AM >Call normal results to patient ?LAB: P-Microalbumin/Creatinine, Random Urine Sample (Collection Date & Time - 10/28/2023 09:00 AM)?Normal* Value Reference Range A lbumin/Creatinine Ratio, Urine See Comment L 0-30 - ug /mg * C reatinine, Urine 21.4 - mg/dL * M icroalbumin, Urine, Random <0.3 - mg/dL * Jose Scott 10/29/2023 12 :51:13 PM > Lab results are normal, sent to to inform. Nelly Marie 10/30/2023 10:15:34 AM >Call normal results to patient ?LAB: P-Uric Acid (Collection Date & Time - 10/28/2023 09:00 AM)?Normal* Value Reference Range U yissel Acid 4.2 3.4-8.0 - mg/dL * Jose Scott 10/29/2023 12 :51:13 PM > Lab results are normal, sent to to inform. Nelly Marie 10/30/2023 10:15:34 AM >Call normal results to patient 2.?Non-seasonal allergic rhinitis, unspecified chronicity, unspecified trigger? Refill EQ All Day Allergy Relief Tablet, 10 MG, 1 tablet, Orally, Once a day, 90 days, 90 Tablet, Refills 1.??3.?NERIS (generalized anxiety disorder)? Refill Escitalopram Oxalate Tablet, 10 MG, 1 tab(s), orally, once a day, 90 days, 90, Refills 1. ?4.?Colon cancer screening?Imaging: colonoscopy* Dr. Simmons at [facility] 10/28/2023 10:00:34 AM > faxed order to Becky Mays at 5.?Prostate cancer screening?LAB: P-PSA (Collection Date & Time - 10/28/2023 09:00 AM)?Normal* Value Reference Range P SA 0.43 <4.00 - ng/mL * Jose Scott 10/29/2023 12 :51:13 PM > Lab results are normal, sent to to inform. Nelly Marie 10/30/2023 10:15:34 AM >Call normal results to patient * Follow Up: 6 Months * Images: Billing Information: * Visit Code: 39994 Office Visit, Est Pt., Level 4. * Procedure Codes: * Electronic signature of Rebecca Scott MD on 02/08/2025 at 07:06 AM EST Sign off status: Pending * Provider: Tyrone Scott M.D. Date: 0 10/28/2023 Generated for Yelena pearson/Johnson/eTmonicasmitting on: 04/10/2024 07:06 AM EST History and Physical Notes * HPI (History of Present Illness) Category Sub-Category Detail Notes Category Not es Cardiology Blood Pressure Elevated Pt here for 6 mo f/u on hypertension, states he is doing well and does not have any concerns Hyperlipidemia Pt is fasting today Examination Category Sub-Category Detail Notes Category Not es Cardiology Lungs: clear, no rales or wheezes Heart sounds: RRR, normal S1, S2 Extremities: no leg edema Peripheral pulses: 2 plus bilateral General Appearance: pleasant, NAD
--- OUTSIDE RECORDS SUMMARY | 2024-01-01 09:15 | XMS_ITS ---
Author Organization [facility] Address [address] [facility] 36 [facility] [address] [place] [id number] Care Team Providers Care Teacher Resource Name Role Phone Jose Scott Primary Care Provider [phone] Allergies No Known Allergies Results Component Value Reference Range Notes CBC Venipuncture (in house) Reviewed date:01/02/2024 03:54:59 PM Interpretation:wbc 12.4 Performing Lab: Notes/Report: wbc 12.4 wbc 12.4 3.5 - 10 lymph 29.9% 15 - 50 mid 7.7% 2 - 15 gran 62.4% 35 - 80 rbc 5.32 3.5 - 5.5 hgb 16.2 11.5 - 16.5 hct 48.2 35 - 55 mcv 90.5 75 - 100 mch 30.4 25 - 35 mchc 33.5 31 - 38 platlet 231 100 - 400 P-Vitamin B12 Reviewed date:01/06/2024 11:48:31 AM Interpretation:Normal 423 Performing Lab: Notes/Report: Test performed by [facility] [address] [place], [place] [address] , [address], [place] [address] Rolly Patel MD, Electrolysis Needle Operator CLIA: [id number] Vitamin B12 494 806-7411 pg/mL P-Arthritis Panel, [facility] Reviewed date:01/06/2024 11:48:31 AM Interpretation:Normal Performing Lab: Notes/Report: Test performed by [facility] [address] [place], [place] [address] [place] , [address], [place] [address] Rolly Patel MD, Electrolysis Needle Operator CLIA: [id number] Erythrocyte Sedimentation Rate (ESR), Automated 5 <21 mm/hr Rheumatoid Factor <10 <14.1 IU/mL C-Reactive Protein (CRP) 0.16 <0.50 mg/dL Antinuclear Antibodies (SAMANTA) Screen, Reflex SAMANTA 9 Panel Negative Negative This test is perform ed by Multiplex Bead Immunoassay methodology. Antinuclear Antibodies (SAMANTA) Result Note SEE COMMENT For positive Autoantibodies, please refer to the interpretive chart here: [email or web address]/w [email or web address]/[email or web address] CCP Antibodies <0.5 <0.5-3.0 U/mL P-Testosterone Total (Adult Male) Reviewed date:01/06/2024 11:48:31 AM Interpretation:Normal 319 Performing Lab: Notes/Report: Test performed by [facility] [address] [place], [place] [address] [place] , [facility] [address], [place] [address] Rolly Patel MD, Electrolysis Needle Operator CLIA: [id number] Testosterone Total 319.00 264.00-916.00 ng/dL P-Hepatic Function Panel Reviewed date:01/06/2024 11:48:31 AM Interpretation:Normal Performing Lab: Notes/Report: Test performed by [facility] [address] [place] [address] , [address], [place] [address] Rolly Patel MD, Electrolysis Needle Operator CLIA: [id number] Protein 7.1 6.0-8.3 g/dL Albumin 4.6 3.5-5.3 g/dL Alkaline Phosphatase 86 40-129 IU/L ALT (SGPT) 19 <5-55 IU/L AST (SGOT) 22 <5-46 IU/L Bilirubin, Total 1.1 <0.2-1.2 mg/dL Bilirubin, Direct 0.2 <0.2-0.3 mg/dL Bilirubin, Indirect 0.9 0.2-1.3 mg/dL P-Magnesium Reviewed date:01/06/2024 11:48:31 AM Interpretation:Normal Performing Lab: Notes/Report: Test performed by [facility] [address] [place], [place] [address] , [address], [place] [address] Rolly Patel MD, Electrolysis Needle Operator CLIA: [id number] Magnesium 2.2 1.6-2.4 mg/dL P-Phosphorus Reviewed date:01/06/2024 11:48:31 AM Interpretation:Normal Performing Lab: Notes/Report: Test performed by [facility] [address] [place] [address] , [place] [address] Rolly Patel MD, Electrolysis Needle Operator CLIA: [id number] Phosphorus 3.0 2.5-4.5 mg/dL P-TSH reflex to FT4 Reviewed date:01/06/2024 11:48:31 AM Interpretation:Normal Performing Lab: Notes/Report: Test performed by [facility] [address] [place] [address] , [address], [place] [id number] Rolly Patel MD, Electrolysis Needle Operator CLIA: [id number] TSH reflex to FT4 2.68 0.43-5.25 mU/L P-Vitamin A (Retinol), Serum Reviewed date:01/06/2024 11:48:31 AM Interpretation:Normal Performing Lab: Notes/Report: Vitamin A (Retinol) 0.57 0.30-1.20 mg/L Vitamin A (Retinyl Palmitate) 0.02 0.00-0.10 mg/L Vitamin A, Ser/Beth - Interpretation Normal This test was developed and its performance characteristics determined by [facility]. It has not been cleared or approved by the US Food and Drug Administration. This test was performed in a CLIA certified laboratory and is intended for clinical purposes. Performed By: [facility] [address] [place] [address] Electrolysis Needle Operator: Cornelius Arechiga MD, PhD CLIA Number: [id number] P-Vitamin D 25-Hydroxy Reviewed date:01/06/2024 11:48:31 AM Interpretation:42.7 Performing Lab: Notes/Report: Test performed by [facility] [address] [place] [address] , [place] [address] Rolly Patel MD, Electrolysis Needle Operator CLIA: [id number] Vitamin D 25-Hydroxy 42.7 30.0-100.0 ng/mL Interpretation of Vitamin D 25 OH: < 20 ng/mL - Deficiency 20 - 29 ng/mL - Insufficiency 30 - 100 ng/mL - Sufficiency > 100 ng/mL - Super-therapeutic- toxicity may occur above this level. Clinical correlation required. P-Vitamin B1 (Thiamine), Ser um/Plasma, LC/MS/MS Reviewed date:01/06/2024 11:48:31 AM Interpretation:low Normal-4 Performing Lab: Notes/Report: Vitamin B1 (Thiamine), Serum/Plasma, LC/MS/MS 4 4-15 nmol/L INTERPRETIVE DATA: Vitamin B1, Plasma Thiamine (vitamin B1) is reported. However, thiamine diphosphate (TDP), the biologically active form of thiamine, is not found in measurable concentrations in plasma, and is best determined in whole blood specimens. Plasma thiamine concentration reflects recent intake rather than body stores. This test was developed and its performance characteristics determined by [facility]. It has not been cleared or approved by the US Food and Drug Administration. This test was performed in a CLIA certified laboratory and is intended for clinical purposes. Performed By: [facility] [address] [place] [address] Electrolysis Needle Operator: Cornelius Arechiga MD, PhD CLIA Number: [id number] REASON FOR VISIT FATIGUE Medications Medication SIG (Take, Route, Frequency, Duration) Notes Start Date End Date Status Fluticasone Propionate 50 MCG/ACT 1 spray(s) intranasally once a day Active Escitalopram Oxalate 10 MG 1 tab(s) oral ly once a day; Duration: 90 days Active Lisinopril 10 MG 1 tab(s) orally once a day; Duration: 90 days Active EQ All Day Allergy Relief 10 MG 1 tablet Orally Once a day; Duration: 90 days Active Vital Signs Blood pressure systolic 120 mm Hg 01/01/20 24 Blood pressure diastolic 82 mm Hg 024 Heart Rate 86 /min 01/01/2024 Height 67 in 01/01/2024 Weight 182.2 lbs 01/01/2024 BMI 28.53 kg/m2 01/01/2024 Encounters Encounter Location Date Provider Diagnosis [facility] [address] [facility] [address] [place], [place] [id number] 01/01/2024 Jose [place] Fatigue, unspecified type R53.83 ; Primary insomnia F51.01 and Polyarthralgia M25.50 Assessments Encounter Date Diagnosis (ICD Code) Assessment Notes Treatment Notes Treatment Clinical Notes Section Notes 01/01/2024 Fatigue, unspecified type (ICD-10 - R53.83) 01/01/2024 Primary insomnia (ICD-10 - F51.01) 01/01/2024 Polyarthralgia (ICD-10 - M25.50) Plan Of Treatment Next Appt Details Follow Up: via phone to repo rt test results, Reason: Progress Notes * Trev MCALLISTERDOB:1975 ( 49 yo M)Acc No.[id number]:01/01/2024 Progress Notes Patient: Trev BUTLER Provider: Tyrone Scott M.D. :1975 A ge:48 Y S ex:Male Date:01/01/2024 Address:[address] [place] [address] [address] , [place], [id number] Subjective: * Chief Complaints: * 1 . FATIGUE. * HPI: E ndocrinology: 48 year old male presents with c/o Fatigue P t complains of constant fatigue that has worsened over the last week. Pt states he gets off of work and will go home and sleep until the next morning. Pt states he feels better today then he has in about a month and did not take any of his medication this morning. * ROS: D ERMATOLOGY: no R leonie. n o H rosina. G ASTROENTEROLOGY: no N ausea. n o V omiting. n o D iarrhea.? U ROLOGY: no D ifficulty urinating. n o B lood in urine. * Medical History: A nxiety, Hypertension, Allergic Rhinitis, 25 pack year smoking history, quit in 2015. * Surgical History: L T Foot 2008, Vasectomy 2009. * Family History: F ather: alive, stroke, prostate cancer, diagnosed with Cancer. M other: alive. 1 brother(s) , 2 sister(s) - healthy. . * Social History: C URRENT TOBACCO USE S moking Status: Patient does smoke, packs per day: 1.5. C affeine: yes, frequency:. Exercise: no. Home smoke detector use: yes. Marital Status: Single. 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 Past smoking status: yes, PPD: 1.5 , years: since age of 13 yrs ,determination:. Recreational drug use: no. Alcohol: Type: , Frequency: too often ,Years: , Determination:pt mother states has a problem with it. * Medications: T aking Fluticasone Propionate 50 MCG/ACT Suspension 1 spray(s) intranasally once a day , Taking Lisinopril 10 MG Tablet 1 tab(s) orally once a day , Taking Escitalopram Oxalate 10 MG Tablet 1 tab(s) orally once a day , Taking EQ All Day Allergy Relief 10 MG Tablet 1 tablet Orally Once a day , Medication List reviewed and reconciled with the patient * Allergies: N .K.D.A. Objective: * Vitals: W t:182.2, Temp:98.0, BP:120/82, HR:86, Nurse:melany, Ht: 67, BMI:28.53. * Examination: G eneral Examination: General Appearance: N AD. H EENT: u nremarkable.?Oral cavity: n o lesions, mucosa moist and WNL, no erythema. N richard: s upple, no lymphadenopathy. H eart: R SR. L ungs: c lear to auscultation. S kin: n ormal, no rash. P eripheral pulses: n ormal (2+) bilaterally. E xtremities: n o leg edema.? Assessment: * Assessment: 1. F atigue, unspecified type - R53.83 (Primary) 2 . P rimary insomnia - F51.01 3 . P olyarthralgia - M25.50 Plan: * Treatment: Value Reference Range V itamin B12 313 690-3366 - pg/mL * Mee Gregorio 01/06/2024 11:4 8:23 AM >See phone encounter ?LAB: P-Testosterone Total (Adult Male) (Collection Date & Time - 01/01/2024 01:45 PM)?Normal 319* Value Reference Range T estosterone Total (Adult Male) 319.00 264.00-91 6.00 - ng/dL * Mee Gregorio 01/06/2024 11:4 8:23 AM >See phone encounter ?LAB: P-Hepatic Function Panel (Collection Date & Time - 01/01/2024 01:45 PM)?Normal* Value Reference Range A lbumin 4.6 3.5-5.3 - g/dL * A lkaline Phosphatase 86 40-129 - IU/L * A LT (SGPT) 19 <5-55 - IU/L * A ST (SGOT) 22 <5-46 - IU/L * B ilirubin, Direct 0.2 <0.2-0.3 - mg/dL * B ilirubin, Indirect 0.9 0.2-1.3 - mg/dL * B ilirubin, Total 1.1 <0.2-1.2 - mg/dL * P rotein 7.1 6.0-8.3 - g/dL * DarlineMee 01/06/2024 11:4 8:23 AM >See phone encounter ?LAB: P-Magnesium (Collection Date & Time - 01/01/2024 01:45 PM)?Normal* Value Reference Range M agnesium 2.2 1.6-2.4 - mg/dL * DarlineMee 01/06/2024 11:4 8:23 AM >See phone encounter ?LAB: P-Phosphorus (Collection Date & Time - 01/01/2024 01:45 PM)?Normal* Value Reference Range P hosphorus 3.0 2.5-4.5 - mg/dL * DarlineMee 01/06/2024 11:4 8:23 AM >See phone encounter ?LAB: P-TSH reflex to FT4 (Collection Date & Time - 01/01/2024 01:45 PM)? Normal* Value Reference Range T SH reflex to FT4 2.68 0.43-5.25 - mU/L * DarlineMee 01/06/2024 11:4 8:23 AM >See phone encounter ?LAB: P-Vitamin A (Retinol), Serum (Collection Date & Time - 01/01/2024 01:45 PM)?Normal* Value Reference Range V itamin A (Retinol) 0.57 0.30-1.20 - mg/L * V itamin A (Retinyl Palmitate) 0.02 0.00-0.10 - mg/L * V itamin A, Ser/Beth - Interpretation Normal - * Mee Gregorio 01/06/2024 11:4 8:23 AM >See phone encounter ?LAB: P-Vitamin D 25-Hydroxy (Collection Date & Time - 01/01/2024 01:45 PM)? 42.7* Value Reference Range V itamin D 25-Hydroxy 42.7 30.0-100.0 - ng/mL * Mee Gregorio 01/06/2024 11:4 8:23 AM >See phone encounter ?LAB: P-Vitamin B1 (Thiamine), Serum/Plasma, LC/MS/MS (Collection Date & Time - 01/01/2024 01:45PM)?low Normal-4* Value Reference Range V itamin B1 (Thiamine), Serum/Plasma, LC/MS/MS 4 4-15 - nmol/L * Mee Gregorio 01/06/2024 11:4 8:23 AM >See phone encounter ?LAB: CBC Venipuncture (in house) (Collection Date & Time - 01/01/2024)?wbc 12.4* Value Reference Range w bc 12.4 3.5 - 10 * l ymph 29.9% 15 - 50 * m id 7.7% 2 - 15 * g ran 62.4% 35 - 80 * r bc 5.32 3.5 - 5.5 * h gb 16.2 11.5 - 16.5 * h ct 48.2 35 - 55 * m cv 90.5 75 - 100 * m ch 30.4 25 - 35 * m chc 33.5 31 - 38 * p latlet 231 100 - 400 * Abril Mays 01/01/2024 3:32:08 PM > 2.?Polyarthralgia?LAB: P-Arthritis Panel, [facility] (Collection Date & Time - 01/01/2024 01:45 PM)?Normal* Value Reference Range A ntinuclear Antibodies (SAMANTA) Result Note SEE COMMENT - * A ntinuclear Antibodies (SAMANTA) Screen, Reflex SAMANTA 9 Panel Negative Negative - * C CP Antibodies <0.5 <0.5-3.0 - U/mL * C -Reactive Protein (CRP) 0.16 <0.50 - mg/dL * E rythrocyte Sedimentation Rate (ESR), Automated 5 <21 - mm/hr * R heumatoid Factor <10 <14.1 - IU/mL * Mee Gregorio 01/06/2024 11:4 8:23 AM >See phone encounter * Procedure Codes: 8 5025 CBC WITH AUTO DIFF * Follow Up: v ia phone to report test results * Images: Billing Information: * Visit Code: 59449 Office Visit, Est Pt., Level 4. * Procedure Codes: 78518 CBC WITH AUTO DIFF. * Electronic signature of Rebecca Scott MD on 02/08/2025 at 07:06 AM EST Sign off status: Pending * Provider: Tyrone Scott M.D. Date: Generated for Yelena pearson/Johnson/eTransmitting on: 04/10/2024 07:06 AM EST History and Physical Notes * HPI (History of Present Illness) Category Sub-Category Detail Notes Category Not es Endocrinology Fatigue Pt complains of constant fatigue that has worsened over the last week. Pt states he gets off of work and will go home and sleep until the next morning. Pt states he feels better today then he has in about a month and did not take any of his medication this morning Examination Category Sub-Category Detail Notes Category Not es General Examination HEENT: unremarkable Heart: RSR Lungs: clear to auscultatio n Extremities: no leg edema General Appearance: NAD Skin: normal, no rash Neck: supple, no lymphaden opathy Oral cavity: no lesions, mucosa m oist and WNL, no erythema Peripheral pulses: normal (2+) bilatera lly
--- OUTSIDE RECORDS SUMMARY | 2024-04-28 04:00 | XMS_ITS ---
Author Organization [facility] Address [address] [facility] [address] [place] [phone] Care Team Providers Care Veterinary Virus Serum Inspector Name Role Phone Jose Scott Primary Care Provider REASON FOR VISIT 6 months Encounters Encounter Location Date Provider Diagnosis [facility] [address] [place] [phone] 04/28/2024 Jose Scott Plan Of Treatment No Information Progress Notes * FADIA TrevDOB:1975 ( 49 yo M)Acc No.[id number]:04/28/2024 Progress Notes Patient: Trev BUTLER Provider: Tyrone Scott M.D. :1975 A ge:48 Y S ex:Male Date:04/28/2024 Address:[address] [place] [address] [id number] Subjective: * Chief Complaints: * 1 . 6 months. * Medical History: Objective: * Vitals: Assessment: Plan: * Treatment: * Images: Billing Information: * Visit Code: * Procedure Codes: * Electronic signature of Rebecca Scott MD on 02/08/2025 at 07:06 AM EST Sign off status: Pending * Provider: Tyrone Scott M.D. Date: 0 04/28/2024 Generated for Yelena pearson/Johnson/Dewayne on: 1 04/10/2024 07:06 AM EST
--- NOTE | 2025-02-08 07:00 | CT_ITS ---
FINAL REPORT CLINICAL HISTORY: lung cancer screening former smoker quit 5 years ago, 1ppd x 31 years COMPARISON: 01/28/2024 FINDINGS: CTDI vol (mGy): 2.90 DLP: 98.[address] images of the chest were obtained using the low-dose protocol for screening. There is no evidence of mediastinal or hilar mass or adenopathy. No axillary mass or adenopathy is identified. On the lung window images, no pulmonary mass or suspicious nodule is identified. IMPRESSION: Lung RADS category 1 . Recommend 12 month followup low-dose CT for further evaluation. Reviewed, Interpreted and Dictated by Bennett Shin MD Transcribed by La Vann Authenticated and [facility]
--- OUTSIDE RECORDS SUMMARY | 2025-02-08 07:06 | XMS_ITS | Patient Health Record ---
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 Name Role Phone Jose Scott Primary Care Provider Allergies No Known Allergies Reason For Referral [...] Vaccine Route Administration Date Status Comme nts Hepatitis B (20 and more) Unknown 04/26/1999 Administer ed Hepatitis B (20 and more) Unknown 05/31/1999 Administer ed Hepatitis B (20 and more) Unknown 01/03/2000 Administer ed Fluzone PF Quad (6-35 months) Unknown 12/31/2019 Admini stered Problems Problem Type SNOMED Code ICD Code Onset Dates Problem Status W/U Status Risk Notes Problem Essential hypertension (38887678) HTN [Hypertension] (401.9) Active confirmed Problem Anxiety disorder (511887714) Anxiety disorder (300.00) Active confirmed Problem Essential hypertension (88694496) Essential hypertension (I10) Active confirmed Problem Hypertriglyceridemia (828417766) Hypertriglyceridemia (E78.1) Active confirmed Problem Hyperbilirubinemia (94483311) Hyperbilirubinemia (E80.6) Active confirmed Problem Primary insomnia (7308950) Primary insomnia (F51.01) Active confirmed Problem Generalized anxiety disorder (20645581) NERIS (generalized anxiety disorder) (F41.1) Active confirmed Problem Allergic rhinitis (33855810) Non-seasonal allergic rhinitis, unspecified chronicity, unspecified trigger (J30.89) Active confirmed Plan Of Treatment Pending Test Test Name Order Date colonoscopy 10/28/2023 Insurance Providers Payer Name Payer Address Payer Phone Subscriber Number Group Number Insured Name Patient Relationship to Insured Coverage Start Date Coverage End Date [employer] [facility] [address] [place] [address] [id number] Trev Loaiza Self - patient is the insured Medical (General) History Medical History History ICD Code Anxiety Hypertension Allergic Rhinitis 25 pack year smoking history, quit in 20 14 Surgical History Surgery Date(Month/Year) LT Foot 2009 Vasectomy 2009
== END 2025-02-08 23:59 ==
LOC: RAD 07:04
PROVIDERS: PCP Nurse Practitioner Family; Visit Provider Nurse Practitioner Family
DX: Z12.2 Encounter for screening for malignant neoplasm of respiratory organs (principal); Z87.891 Personal history of nicotine dependence
CPT/HCPCS: 71271